=== PATIENT | female | born 1940 | race Caucasian/White ===

== ENCOUNTER → 2020-03-08 | Outpatient (REF) ==
[~2020-03-08] MED LIST: ASPIRIN 81M81 MG/TA2 PO; CALCIUM600 MG PO; CARDI-OMEGA1000 MG PO; CEFTIN 250250 MG/TAB PO; CELEXA 20MG20 MG/TAB PO; COREG 25MG25 MG/TAB PO; GARLIC OIL 101000 MG PO; GLUCOPHAGE1000 MG PO; GLUCOPHAGE850 MG/TAB PO; JANUVIA 100MG100 MG PO; LANTUS SOLOS100 U/ML SQ; LANTUS100 U/ML SQ; NATURAL E400 IU PO; NORCO 325 MG-51 TAB PO; NORVASC 10MG10 MG PO; PRAVACHOL80 MG PO; PRINZIDE 25 MG-1 TAB PO; STOOL SOFTENER100 M2 PO; SYNTHROID0.075 MG/T PO; ZESTRIL 20MG TA20 MG PO
== END ==
LOC: ZLAB.WCH 11:17
DX: Z01.89 Encounter for other specified special examinations (principal)